=== PATIENT | female | born 1975 | race Two or more races ===

== ENCOUNTER 2016-09-17 19:41 | Emergency (ER) | payer SELFPAY ==
[~2016-09-17] VITALS: Ht 157.5 cm; Wt 83.0 kg
[2016-09-17] MEDS ORDERED: IV NORMAL SALINE 1000ML BAG 1,000 ML IV ONE (20:00)
[2016-09-17 20:10] LABS: BASO # 0.1 x10^3/uL (0.0-0.2); BASO % 1 % (0-3); EOS % 6 % (0-3); HEMATOCRIT 33.3 % (36.0-47.0); LYMPH # 2.8 x10^3/uL (1.0-4.8); LYMPH % 21 % (24-48); MEAN CORPUSCULAR HEMOGLOBIN 20 pg (25-35); MEAN CORPUSCULAR HGB CONC 30 g/dL (31-37); MEAN CORPUSCULAR VOLUME 67 fL (79-100); MONO % 6 % (0-9); NEUT % 66 % (31-73); PLATELET COUNT 356 x10^3/uL (140-400); RED BLOOD COUNT 5.01 x10^6/uL (3.50-5.40); RED CELL DISTRIBUTION WIDTH 18.4 % (11.5-14.5); WHITE BLOOD COUNT 13.3 x10^3/uL (4.0-11.0)
--- NOTE | 2016-09-17 20:15 | PHYS DOC ---
Past Medical History Past Medical History: Anemia Additional Past Medical Histor: "hemoglobin runs around 9" Past Surgical History: Tubal ligation Alcohol Use: None Drug Use: None Adult General Chief Complaint Chief Complaint: Palpitations HPI HPI Patient is a 41 year old female who presents with heart racing and palpitations. Patient has been undergoing hormone injections in decreasing her caloric intake to 500 melissa a day and developed heart palpitations or heart racing for the past 24 hours. She denies any cardiac history. Patient denies any PE history. Patient takes no other medications. Patient has no other complaints. Pertinent exam findings: Heart Tachycardia with no murmurs Lungs clear to auscultation bilaterally without crackles wheeze or rales ED course: Patient was seen and evaluated emergency room CBC, CMP, troponin, EKG, CT angiogram of the chest was ordered 2254: Discussed results with the patient and on reexamination heart rates in the 80s and the patient is asymptomatic. Patient is ready to go home. Pertinent findings: 1950:EKG shows sinus tach rate of 133 no STEMI Troponin negative CT in September of the chest negative for PE MDM: After reviewing the chart, CC/HPI/PMH, physical exam, [lab results], [ radiological results], I do not believe the patient have an acute IN (Heart score =1), PE, thoracic aortic dissection. His tachycardia has resolved and on reexamination heart rate in the 80s and patient is asymptomatic. Recommend patient follow PCP for further evaluation and possible Holter monitor. She is stable for discharge. Additional verbal discharge instructions were provided to the patient and that if symptoms get worse or any new symptoms arise that are worrisome to the patient she is to return to the emergency room immediately Review of Systems Review of Systems GEN: Denies fevers, chills, sweats HEENT: Denies blurred vision, sore throat CV: Chest pain and palpitations RESP: Denies shortness of air, cough GI: Denies n/v/d NEURO: Denies confusion, dizziness MSK: Denies weakness, joint pain/swelling Current Medications Current Medications Current Medications Medications (Trade) Dose Ordered Sig/Carlota Start Time Stop Time Status Last Admin Dose Admin Info (Do NOT chart on this entry -- for MONITORING) 1 each PRN DAILY PRN 09/17/16 20:45 09/19/16 20:44 Iohexol (Omnipaque 300 Mg/ml) 75 ml 1X ONCE 09/17/16 20:45 09/17/16 20:46 DC 09/17/16 21:00 75 ML Sodium Chloride 1,000 ml @ 1,000 mls/hr 1X ONCE 09/17/16 20:00 09/17/16 20:59 DC 09/17/16 20:07 1,000 MLS/HR Allergies Allergies Allergies Coded Allergies Type Severity Reaction Last Updated Verified No Known Drug Allergies 09/17/16 No Physical Exam Physical Exam GEN.: Mild distress, anxious, Alert and oriented. HEENT: Head is normocephalic, atraumatic NECK: Supple. LUNGS: CTAB. HEART: Tachycardia, S1, S2 present. Peripheral pulses intact ABDOMEN: Soft, nontender. Positive bowel sounds. EXTREMITIES: Without any cyanosis. NEUROLOGIC: Normal speech, normal tone PSYCHIATRIC: Normal affect, normal mood. SKIN: No ulcerations Current Patient Data Vital Signs Vital Signs Date Time Temp Pulse Resp B/P (MAP) Pulse Ox O2 Delivery O2 Flow Rate FiO2 09/17/16 21:07 114 23 138/65 (89) 100 Room Air 09/17/16 19:49 98.8 98.8 Lab Values Laboratory Tests Test 09/17/16 20:00 White Blood Count 13.3 x10^3/uL (4.0-11.0) H Red Blood Count 5.01 x10^6/uL (3.50-5.40) Hemoglobin 10.0 g/dL (12.0-15.5) L Hematocrit 33.3 % (36.0-47.0) L Mean Corpuscular Volume 67 fL (79-100) L Mean Corpuscular Hemoglobin 20 pg (25-35) L Mean Corpuscular Hemoglobin Concent 30 g/dL (31-37) L Red Cell Distribution Width 18.4 % (11.5-14.5) H Platelet Count 356 x10^3/uL (140-400) Neutrophils (%) (Auto) 66 % (31-73) Lymphocytes (%) (Auto) 21 % (24-48) L Monocytes (%) (Auto) 6 % (0-9) Eosinophils (%) (Auto) 6 % (0-3) H Basophils (%) (Auto) 1 % (0-3) Neutrophils # (Auto) 8.8 x10^3uL (1.8-7.7) H Lymphocytes # (Auto) 2.8 x10^3/uL (1.0-4.8) Monocytes # (Auto) 0.8 x10^3/uL (0.0-1.1) Eosinophils # (Auto) 0.8 x10^3/uL (0.0-0.7) H Basophils # (Auto) 0.1 x10^3/uL (0.0-0.2) Platelet Estimate Adequate (ADEQUATE) Hypochromasia Marked Anisocytosis Slight Microcytosis Marked Sodium Level 140 mmol/L (136-145) Potassium Level 3.6 mmol/L (3.5-5.1) Chloride Level 102 mmol/L (98-107) Carbon Dioxide Level 25 mmol/L (21-32) Anion Gap 13 (6-14) Blood Urea Nitrogen 17 mg/dL (7-20) Creatinine 0.8 mg/dL (0.6-1.0) Estimated GFR (Cockcroft-Gault) 79.0 Glucose Level 143 mg/dL (70-99) H Calcium Level 9.2 mg/dL (8.5-10.1) Troponin I Quantitative < 0.017 ng/mL (0.000-0.055) Laboratory Tests 09/17/16 20:00 Laboratory Tests 09/17/16 20:00 EKG EKG EKG shows sinus tach rate of 133 no STEMI [] Radiology/Procedures Radiology/Procedures CT angiogram chest: IMPRESSION: 1. Very limited evaluation for pulmonary embolus secondary to severe patient motion. No definite embolus is seen in the main pulmonary arteries but portions of the main pulmonary artery are obscured and the peripheral vessels are not evaluated on this exam. 2. There is severe motion through the ascending aorta which obscures the region. 3. No definite focal airspace consolidation. 4. 4 mm nodular density along the fissure on the left. If no risk factors for malignancy then this is likely benign. If risk factors follow-up could be obtained in the year to ensure no growth. [] Course & Med Decision Making Course & Med Decision Making Pertinent Labs and Imaging studies reviewed. (See chart for details) [] Dragon Disclaimer Dragon Disclaimer This electronic medical record was generated, in whole or in part, using a voice recognition dictation system. Departure Departure Impression: Primary Impression: Palpitations Disposition: HOME, SELF-CARE Condition: IMPROVED Referrals: DANIEL REILLY MD (PCP) Patient Instructions: Palpitations, [id number] Additional Instructions: Please follow up with her family doctor in one to 2 days for further evaluation. SOPHIA NESS DO September 17, 2016 20:15
[2016-09-17 20:26] LABS: CALCIUM 9.2 mg/dL (8.5-10.1); CREATININE 0.8 mg/dL (0.6-1.0); POTASSIUM 3.6 mmol/L (3.5-5.1)
[2016-09-17] MEDS ORDERED: IOHEXOL 300 MG/ML 75 ML VIAL PO ONE (20:45)
[2016-09-17] MEDS ORDERED: CONTRAST GIVEN MC PRN (20:45)
[2016-09-17 20:56] LABS: ANISOCYTOSIS SLIGHT; HYPOCHROMIA MARKED; MICROCYTOSIS MARKED; PLT ESTIMATE ADEQUATE (ADEQUATE)
--- NOTE | 2016-09-17 22:43 | RAD ---
INDICATION: tachycardia today, [id number] 75ml, no priors COMPARISON: None. TECHNIQUE: Axial CT images obtained through the chest. Intravenous contrast utilized. Angiogram 3D images processed per protocol. One or more of the following individualized dose reduction techniques were utilized for this examination: 1. Automated exposure control; 2. Adjustment of the mA and/or kV according to patient size; 3. Use of iterative reconstruction technique. FINDINGS: Large amount of patient motion limits this exam. No evidence of pneumothorax or definite focal airspace consolidation. 4 mm nodule along the fissure left upper lung. 16 mm nodular density adjacent to spleen superior to left kidney. Could be from causes such as splenule or prominent lymph node in region. Ascending thoracic aorta is largely obscured by motion. No definite aneurysm in the descending thoracic aorta. No definite embolus in the right main or left main pulmonary artery. There is severe motion through the main pulmonary artery which limits evaluation. Nondiagnostic peripherally secondary to severe motion IMPRESSION: 1. Very limited evaluation for pulmonary embolus secondary to severe patient motion. No definite embolus is seen in the main pulmonary arteries but portions of the main pulmonary artery are obscured and the peripheral vessels are not evaluated on this exam. 2. There is severe motion through the ascending aorta which obscures the region. 3. No definite focal airspace consolidation. 4. 4 mm nodular density along the fissure on the left. If no risk factors for malignancy then this is likely benign. If risk factors follow-up could be obtained in the year to ensure no growth. Electronically signed by: Sage De Leon MD (09/17/2016 10:40 PM)
[2016-09-17 23:37] VITALS: BP 111/57
--- NOTE | 2016-09-18 07:06 | EKG ---
[facility] [address] [place] [address] Test Date: 2016-09-17 Test Time: 19:51:49 Pat Name: YVAN SCHLUER Department: Room: Gender: F Director Orange: : 1975 Requested By: SOPHIA NESS Order Number: [id number] Reading MD: Francisco Ritchie Measurements Intervals [place] Rate: 133 P: 47 ID: [id number] QRS: 51 QRSD: 86 T: -27 QT: 344 QTc: 513 Interpretive Statements SINUS TACHYCARDIA LVH WITH REPOLARIZATION ABNORMALITY Electronically Signed On 09-21-2016 12:55:32 CDT by Francisco Ritchie
== END 2016-09-17 23:55 | disposition home or self-care (01) ==
LOC: ER 19:41
DX: R00.2 Palpitations (principal); R00.0 Tachycardia, unspecified; R07.9 Chest pain, unspecified; F41.9 Anxiety disorder, unspecified; Z98.51 Tubal ligation status
CPT/HCPCS: 36415; 71275; 80048; 84484; 85007; 85027; 93005; 96360; 99285; J7030; Q9967